=== PATIENT | female | born 1980 | race American Indian/Alaskan Native ===

== ENCOUNTER 2021-03-28 21:56 | Emergency (ER) | payer SELFPAY ==
[2021-03-28] MEDS ORDERED: LIDOCAINE (2%) 20 MG/1 ML VIAL 20 ML MDV INFILTRATI ONE (22:41)
[2021-03-28] MEDS ORDERED: HYDROcodone/ACETAMINOPHEN 10-325MG TAB PO ONE (22:41)
--- NOTE | 2021-03-28 23:29 | XRay Report ---
Left foot, 3 views HISTORY: Fifth toe injury COMPARISON: None FINDINGS: There is an acute oblique fracture of the fifth toe proximal phalanx. The distal fifth toe is laterally angulated. No additional fracture. No joint subluxation/dislocation IMPRESSION: Acute angulated fifth toe proximal phalanx fracture. Signer Name: Hermes Perrin MD Signed: 03/28/2021 11:25 PM Workstation Name: [id number]
--- NOTE | 2021-03-29 00:32 | Emergency Department Report ---
ED Lower Extremity HPI - General Chief Complaint: Extremity Injury, Lower Stated Complaint: TOE PAIN Time Seen by Provider: 03/28/21 22:39 Source: patient Mode of arrival: Ambulatory Limitations: No Limitations - History of Present Illness Initial Comments: This is a 40-year-old female nontoxic, well nourished in appearance, no acute signs of distress presents to the ED with c/o of left 5th toe pain. Patient stated that she hit her toe against the corner of her shoe. Patient denies any other injuries or trauma. Patient denies any numbness, tingling, fever, chills, nausea, vomiting, chest pain, shortness of breath, headache, stiff neck. Patient denies any joint swelling or joint redness. Patient stated has some decreased range of motion and decreased gait due to pain. Patient denies any allergies or significant past medical history. MD Complaint: other (left toe) -: This evening Injury: Foot: Left Severity: mild Severity scale (0 -10): 8 Improves With: immobilization Worsens With: weight bearing, movement, palpation Associated Symptoms: able to partially bear weight. denies: snap/pop sensation, swelling, numbness, tingling, unable to bear weight - Related Data Previous Rx's Medication Instructions Recorded Last Taken Type Acetaminophen/Codeine [Tylenol 1 tab PO Q6H PRN #12 tab 03/29/21 Unknown Rx /Codeine # 3 tab] Allergies Allergy/AdvReac Type Severity Reaction Status Date / Time No Known Allergies Allergy Verified 03/28/21 22:33 ED Review of Systems ROS: Stated complaint: TOE PAIN Other details as noted in HPI Comment: All other systems reviewed and negative Constitutional: denies: chills, fever Eyes: denies: eye pain, eye discharge, vision change ENT: denies: ear pain, throat pain Respiratory: denies: cough, shortness of breath, wheezing Cardiovascular: denies: chest pain, palpitations Endocrine: no symptoms reported Gastrointestinal: denies: abdominal pain, nausea, diarrhea Genitourinary: denies: urgency, dysuria, discharge Musculoskeletal: denies: back pain, joint swelling, arthralgia Skin: denies: rash, lesions Neurological: denies: headache, weakness, paresthesias Psychiatric: denies: anxiety, depression Hematological/Lymphatic: denies: easy bleeding, easy bruising ED Past Medical Hx - Past Medical History Previous Medical History?: No - Surgical History Past Surgical History?: No - Medications Home Medications: Home Medications Medication Instructions Recorded Confirmed Last Taken Type Acetaminophen/Codeine [Tylenol 1 tab PO Q6H PRN #12 tab 03/29/21 Unknown Rx /Codeine # 3 tab] ED Physical Exam - General Limitations: No Limitations General appearance: alert, in no apparent distress - Head Head exam: Present: atraumatic, normocephalic - Eye Eye exam: Present: normal appearance - Neck Neck exam: Present: full ROM - Respiratory Respiratory exam: Absent: respiratory distress - Cardiovascular Cardiovascular Exam: Present: regular rate - Extremities Exam Extremities exam: Present: full ROM, tenderness, normal capillary refill. Absent: joint swelling - Expanded Lower Extremity Exam Left Hip exam: Present: full ROM Upper Leg exam: Present: full ROM Knee exam: Present: full ROM Lower Leg exam: Present: full ROM Ankle exam: Present: normal inspection, full ROM. Absent: tenderness, swelling, abrasion, laceration, ecchymosis, deformity, crepidus, dislocation, erythema, anterior draw sign Foot/Toe exam: Present: full ROM, tenderness, deformity. Absent: swelling, abrasion, laceration, ecchymosis, crepidus, dislocation, erythema, amputation, puncture wound, foreign body, calcaneal tenderness, tenderness at base of 5th metatarsal, nail avulsion, subungual hematoma Neuro vascular tendon exam: Present: no vascular compromise Gait: Positive: observed and limited by pain - Back Exam Back exam: Present: full ROM - Neurological Exam Neurological exam: Present: alert, oriented X3 - Psychiatric Psychiatric exam: Present: normal affect, normal mood - Skin Skin exam: Present: warm, dry, intact, normal color. Absent: rash ED Course Vital Signs 03/28/21 03/28/21 22:28 22:59 Temperature 98.3 F Pulse Rate 72 Respiratory 17 15 Rate Blood Pressure 145/96 [Right] O2 Sat by Pulse 99 Oximetry - Reevaluation(s) Reevaluation #1: 03/29/21 00:30 Patient is speaking in full sentences with no signs of distress noted. - Consultations Consultation #1: 03/29/21 00:30 Patient has been consulted with Dr. Yonis V about patient history, physical exam, and imaging results and agrees to the ED plan of care and discharge instructions. ED Lower Extremity MDM - Radiology Data [facility] [address] [place] [address] XRay Report Signed Patient: SHARONDA AUGUST MR#: [id number] : 1980 Acct:[id number] Age/Sex: 40 / F ADM Date: 03/28/21 Loc: ED Attending Dr: Ordering Physician: FELISHA WOODARD NP Date of Service: 03/28/21 Procedure(s): XR foot 3+V LT Accession Number(s): [id number] cc: FELISHA WOODARD NP Fluoro Time In Minutes: Left foot, 3 views HISTORY: Fifth toe injury COMPARISON: None FINDINGS: There is an acute oblique fracture of the fifth toe proximal phalanx. The distal fifth toe is laterally angulated. No additional fracture. No joint subluxation/dislocation IMPRESSION: Acute angulated fifth toe proximal phalanx fracture. Signer Name: Bessy Perrin MD Signed: 03/28/2021 11:25 PM Workstation Name: [id number] Transcribed By: JS Dictated By: BESSY PERRIN MD Electronically Authenticated By: BESSY PERRIN MD Signed Date/Time: 03/28/212324 DD/ 22 TD/TT: - Medical Decision Making This is a 40-year-old female that presents with left toe fracture. Patient is stable and was examined by me. I referred patient to an orthopedic doctor for further evaluation. X-ray has been obtained and dictated by the radiologist. Patient is notified of the x-ray report with noted by the patient. Patient received navneet tape for the 5th and 4th toe to proximate the angulation. Patient also received a postop orthopedic shoe. Patient was instructed to RICE therapy. Patient received Kenvir for pain. Patient stated for member will drive patient home after discharge due to possible drowsiness. Patient is discharged with Tylenol with codeine. At time of discharge, the patient does not seem toxic or ill in appearance. No acute signs of distress noted. Patient agrees to discharge treatment plan of care. No further questions noted by the patient. Critical care attestation.: If time is entered above; I have spent that time in minutes in the direct care of this critically ill patient, excluding procedure time. ED Disposition Clinical Impression: Toe fracture, left Qualifiers: Encounter type: initial encounter Toe: lesser toe Fracture type: closed Phalanx: distal Fracture alignment: nondisplaced Qualified Code(s): S92.535A - Nondisplaced fracture of distal phalanx of left lesser toe(s), initial encounter for closed fracture Disposition: HOME / SELF CARE / HOMELESS Is pt being admited?: No Does the pt Need Aspirin: No Condition: Stable Instructions: Toe Fracture, [id number], RICE Therapy for Routine Care of Injuries, [id number] Additional Instructions: Follow-up with a orthopedic doctor in 3-5 days or if symptoms worsen and continue return to emergency room as soon as possible. No physical activity that extremity until cleared by orthopedic doctor Prescriptions: Acetaminophen/Codeine [Tylenol /Codeine # 3 tab] 1 tab PO Q6H PRN #12 tab PRN Reason: Pain , Severe (7-10) Referrals: PRIMARY MD CAROL [Primary Care Provider] - 3-5 Days CECILIO SHARMA MD [Staff Physician] - 3-5 Days Forms: Work/School Release Form(ED) Time of Disposition: 00:33
[2021-03-29 00:53] VITALS: BP 130/72
== END 2021-03-29 00:54 | disposition home or self-care (01) ==
LOC: ED 21:56
DX: S92.535A Nondisplaced fracture of distal phalanx of left lesser toe(s), initial encounter for closed fracture (principal); W22.8XXA Striking against or struck by other objects, initial encounter; Y93.89 Activity, other specified; Y92.89 Other specified places as the place of occurrence of the external cause; Y99.8 Other external cause status
CPT/HCPCS: 99283